=== PATIENT | female | born 1995 | race Hispanic/Latino ===

== ENCOUNTER 2018-03-17 01:53 | Emergency (ER) | payer OTHER ==
--- NOTE | 2018-03-17 02:34 | EDPHYS ---
Physician Documentation [facility] Name: Chapin Pelayo Age: 22 yrs Sex: Female : 1995 Arrival Date: 03/17/2018 Time: 01:57 Bed 15 Private MD: Sonny Ugarte W ED Physician Waldemar Stephens HPI: 03/17 02:29 This 22 yrs old Female presents to ER via Ambulatory with complaints of Finger jr8 Injury. 02:29 The patient or guardian reports a laceration, clean, 1 cm(s), simple. Onset: The jr8 symptoms/episode began/occurred acutely, today. Modifying factors: The symptoms are alleviated by nothing, the symptoms are aggravated by nothing. Associated signs and symptoms: The patient has no apparent associated signs or symptoms. Severity of symptoms: At their worst the symptoms were mild, in the emergency department the symptoms are unchanged. The patient has not experienced similar symptoms in the past. The patient has not recently seen a physician. cut hand on glass door that was broken by accident. Could not get bleeding to stop. 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 pylori; aa1 - PSHx: 02:04 None; aa1 - Immunization history:: Last tetanus immunization: < 5 years ago. - Social history:: Smoking status: Patient/guardian denies using tobacco. - Ebola Screening: : No symptoms or risks identified at this time. ROS: 02:29 Eyes: Negative for injury, pain, redness, and discharge, ENT: Negative for injury, jr8 pain, and discharge, Neck: Negative for injury, pain, and swelling, Cardiovascular: Negative for chest pain, palpitations, and edema, Respiratory: Negative for shortness of breath, cough, wheezing, and pleuritic chest pain, Abdomen/GI: Negative for abdominal pain, nausea, vomiting, diarrhea, and constipation, Back: Negative for injury and pain, MS/Extremity: Negative for injury and deformity, Neuro: Negative for headache, weakness, numbness, tingling, and seizure. 02:29 Skin: Positive for laceration(s). Exam: 02:29 Constitutional: This is a well developed, well nourished patient who is awake, alert, jr8 and in no acute distress. Cardiovascular: Regular rate and rhythm with a normal S1 and S2. No gallops, murmurs, or rubs. Normal PMI, no JVD. No pulse deficits. Respiratory: Lungs have equal breath sounds bilaterally, clear to auscultation and percussion. No rales, rhonchi or wheezes noted. No increased work of breathing, no retractions or nasal flaring. MS/ Extremity: Pulses equal, no cyanosis. Neurovascular intact. Full, normal range of motion. Neuro: Awake and alert, GCS 15, oriented to person, place, time, and situation. Cranial nerves II-XII grossly intact. Motor strength 5/5 in all extremities. Sensory grossly intact. Cerebellar exam normal. Normal gait. 02:29 Skin: small 1 cm laceration to 3rd digit right hand at the PIP level. Mild amount of bleeding. No glass noted. Superficial. Another small 1 cm laceration noted to 4th digit PIP level dorsal aspect with minimal bleeding. No glass noted. Vital Signs: 02:04 BP 134 / 94; Pulse 95; Resp 16; Temp 98.2; Pulse Ox 97% ; Weight 72.57 kg; Height 5 ft. aa1 3 in. (160.02 cm); Pain 3/10; 02:04 Body Mass Index 28.34 (72.57 kg, 160.02 cm) aa1 MDM: 02:29 Data reviewed: vital signs, nurses notes, and as a result, I will discharge patient. jr8 Data interpreted: Pulse oximetry: on room air is 97 %. Interpretation: normal. Counseling: I had a detailed discussion with the patient and/or guardian regarding: the historical points, exam findings, and any diagnostic results supporting the discharge/admit diagnosis, the need for outpatient follow up, a family practitioner, to return to the emergency department if symptoms worsen or persist or if there are any questions or concerns that arise at home. ED course: Wounds were not deep enough to suture. Dermabond would not work in flexural areas. Suggested pressure dressing and secondary healing at this point which patient is fine with. Tetanus up to date. Will d/c home with wound management instructions and to watch for infection. Wounds were thoroughly cleaned and dressed by me prior to leaving . 02:34 Patient medically screened. jr8 Administered Medications: No medications were administered Disposition: 02:40 Co-signature as Attending Physician, Waldemar Stephens MD. rn Disposition: 03/17/18 02:34 Discharged to Home. Impression: Laceration without foreign body of finger without damage to nail. - Condition is Stable. - Discharge Instructions: Laceration Care, Adult. - Medication Reconciliation Form, Thank You Letter, Antibiotic Education, Prescription Opioid Use form. - Follow up: Sonny Ugarte MD; When: As needed; Reason: Wound Recheck, Recheck today's complaints, Continuance of care, Re-evaluation by your physician. - Problem is new. - Symptoms have improved. Signatures: Tiffani Armstrong RN RN aa1 Waldemar Stephens MD MD rn Roszak, Josh, PA PA jr8 Corrections: (The following items were deleted from the chart) 02:39 02:34 03/17/2018 02:34 Discharged to Home. Impression: Laceration without foreign body aa1 of finger without damage to nail. Condition is Stable. Forms are Medication Reconciliation Form, Thank You Letter, Antibiotic Education, Prescription Opioid Use. Follow up: Sonny Ugarte; When: As needed; Reason: Wound Recheck, Recheck today's complaints, Continuance of care, Re-evaluation by your physician. Problem is new. Symptoms have improved. jr8
--- NOTE | 2018-03-17 02:34 | ER ---
Nurse's Notes [facility] Name: Chapin Pelayo Age: 22 yrs Sex: Female : 1995 Arrival Date: 03/17/2018 Time: 01:57 Bed 15 Private MD: Sonny Ugarte W Diagnosis: Laceration without foreign body of finger without damage to nail Presentation: 03/17 02:02 Presenting complaint: Patient states: she cut her R middle \T\ ring finger on some broken aa1 glass on her back door. Transition of care: patient was not received from another setting of care. Onset of symptoms was March 17, 2018. Risk Assessment: Do you want to hurt yourself or someone else? Patient reports no desire to harm self or others. Initial Sepsis Screen: Does the patient meet any 2 criteria? No. Patient's initial sepsis screen is negative. Does the patient have a suspected source of infection? No. Patient's initial sepsis screen is negative. Care prior to arrival: None. 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 pylori; aa1 - PSHx: 02:04 None; aa1 - Immunization history:: Last tetanus immunization: < 5 years ago. - Social history:: Smoking status: Patient/guardian denies using tobacco. - Ebola Screening: : No symptoms or risks identified at this time. Screenin:18 Abuse screen: Denies threats or abuse. Denies injuries from another. Nutritional aa1 screening: No deficits noted. Tuberculosis screening: No symptoms or risk factors identified. Fall Risk None identified. Assessment: 02:18 General: Appears in no apparent distress. comfortable, Behavior is calm, cooperative, aa1 appropriate for age. Pain: Complains of pain in right middle finger and right ring finger. 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 Full function. Respiratory: Airway is patent Respiratory effort is even, unlabored, Respiratory pattern is regular, symmetrical. GI: No signs and/or symptoms were reported involving the gastrointestinal system. : No signs and/or symptoms were reported regarding the genitourinary system. EENT: No signs and/or symptoms were reported regarding the EENT system. Derm: Skin is intact, is healthy with good turgor, Skin is pink, warm \T\ dry. Musculoskeletal: Circulation, motion, and sensation intact. Capillary refill < 3 seconds, Range of motion: intact in all extremities. Injury Description: Laceration sustained to dorsal aspect of middle phalanx of right middle finger and dorsal aspect of middle phalanx of right ring finger is superficial, 0.5 to 2.5 cm long. 02:38 Reassessment: Patient appears in no apparent distress at this time. Patient is alert, aa1 oriented x 3, equal unlabored respirations, skin warm/dry/pink. Discussed d/c \T\ f/u instructions with pt \T\ mother; denies questions or concerns at this time. Vital Signs: 02:04 BP 134 / 94; Pulse 95; Resp 16; Temp 98.2; Pulse Ox 97% ; Weight 72.57 kg; Height 5 ft. aa1 3 in. (160.02 cm); Pain 3/10; 02:04 Body Mass Index 28.34 (72.57 kg, 160.02 cm) aa1 ED Course: 01:57 Patient arrived in ED. es 01:57 Sonny Ugarte MD is Private Physician. es 01:58 Tiffani Armstrong, RN is Primary Nurse. aa1 02:03 Triage completed. aa1 02:04 Arm band placed on left wrist. aa1 02:18 Patient has correct armband on for positive identification. Bed in low position. Call aa1 light in reach. Pulse ox on. NIBP on. 02:18 No provider procedures requiring assistance completed. Patient did not have IV access aa1 during this emergency room visit. Dressings: Zoë x 1 right ring finger and right middle finger 4X4s X 1; right ring finger and right middle finger. Wound care: to laceration located on right ring finger and right middle finger was cleaned with Hibiclens, irrigated with normal saline, dressed with 4X4s, cling, Patient tolerated well. 02:22 Regan Pina PA is PHCP. aa1 02:22 Waldemar Stephens MD is Attending Physician. aa1 02:33 Sonny Ugarte MD is Referral Physician. jr8 Administered Medications: No medications were administered Outcome: 02:34 Discharge ordered by . jr8 02:38 Discharged to home ambulatory, with family. aa1 02:38 Condition: good 02:38 Discharge instructions given to patient, family, Instructed on discharge instructions, follow up and referral plans. wound care, Demonstrated understanding of instructions, follow-up care, wound care. 02:39 Patient left the ED. aa1 Signatures: Tiffani Armstrong RN RN aa1 Sumi Emery Josh, LUCIA PA jr8
[2018-03-17 02:51] VITALS: BP 134/94; TEMP 98.2; O2SAT 97
== END 2018-03-17 02:39 | disposition home or self-care (01) ==
LOC: ER 01:53
DX: S61.212A Laceration without foreign body of right middle finger without damage to nail, initial encounter (principal); S61.214A Laceration without foreign body of right ring finger without damage to nail, initial encounter; W25.XXXA Contact with sharp glass, initial encounter
CPT/HCPCS: 99283

== ENCOUNTER 2018-11-05 15:34 | Emergency (ER) | payer OTHER ==
[2018-11-05] MEDS ORDERED: KETOROLAC 30 MG/ML INJ ONE (15:54)
[2018-11-05] MEDS ORDERED: DIPHENHYDRAMINE 50 MG/ML VIAL ONE (15:54)
[2018-11-05] MEDS ORDERED: METOCLOPRAMIDE 10 MG/2mL INJ ONE (15:54)
[2018-11-05] MEDS ORDERED: NA CHLORIDE 0.9% 1,000 ML ONE (15:54)
--- NOTE | 2018-11-05 16:43 | EDPHYS ---
Physician Documentation [facility] Name: Chapin Pelayo Age: 22 yrs Sex: Female : 1995 Arrival Date: 11/05/2018 Time: 15:36 Bed 15 Private MD: ED Physician Ronak Meade HPI: 11/05 17:00 This 22 yrs old Female presents to ER via Ambulatory with complaints of kb Headache, Blurred Vision. 17:00 The patient complains of pain to the right side of head. The patient describes the kb headache as constant. Onset: The symptoms/episode began/occurred 3 day(s) ago. Associated signs and symptoms: Pertinent positives: Photophobia. Severity of symptoms: At its worst the pain was moderate, in the emergency department the pain is unchanged. Headache History: The patient has had previous headaches and this one is similar to previous episodes. The symptoms are alleviated by nothing. the symptoms are aggravated by nothing. The patient has experienced similar episodes in the past, today's symptoms are similar. The patient has not recently seen a physician. 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 pylori; Migraines; la1 - Immunization history:: Adult Immunizations up to date. - Social history:: Smoking status: Patient/guardian denies using tobacco. - Ebola Screening: : No symptoms or risks identified at this time. ROS: 16:57 Constitutional: Negative for fever, chills, and weight loss, ENT: Negative for injury, kb pain, and discharge, Neck: Negative for injury, pain, and swelling, Cardiovascular: Negative for chest pain, palpitations, and edema, Respiratory: Negative for shortness of breath, cough, wheezing, and pleuritic chest pain, Abdomen/GI: Negative for abdominal pain, nausea, vomiting, diarrhea, and constipation, Back: Negative for injury and pain, MS/Extremity: Negative for injury and deformity, Skin: Negative for injury, rash, and discoloration. 16:57 Neuro: Positive for headache. Exam: 17:00 Constitutional: This is a well developed, well nourished patient who is awake, alert, kb and in no acute distress. Head/Face: Normocephalic, atraumatic. Eyes: Pupils equal round and reactive to light, extra-ocular motions intact. Lids and lashes normal. Conjunctiva and sclera are non-icteric and not injected. Cornea within normal limits. Periorbital areas with no swelling, redness, or edema. ENT: Nares patent. No nasal discharge, no septal abnormalities noted. Tympanic membranes are normal and external auditory canals are clear. Oropharynx with no redness, swelling, or masses, exudates, or evidence of obstruction, uvula midline. Mucous membranes moist. Neck: Trachea midline, no thyromegaly or masses palpated, and no cervical lymphadenopathy. Supple, full range of motion without nuchal rigidity, or vertebral point tenderness. No Meningismus. Chest/axilla: Normal chest wall appearance and motion. Nontender with no deformity. No lesions are appreciated. Cardiovascular: Regular rate and rhythm with a normal S1 and S2. No gallops, murmurs, or rubs. Normal PMI, no JVD. No pulse deficits. Respiratory: Lungs have equal breath sounds bilaterally, clear to auscultation and percussion. No rales, rhonchi or wheezes noted. No increased work of breathing, no retractions or nasal flaring. Abdomen/GI: Soft, non-tender, with normal bowel sounds. No distension or tympany. No guarding or rebound. No evidence of tenderness throughout. Back: No spinal tenderness. No costovertebral tenderness. Full range of motion. Skin: Warm, dry with normal turgor. Normal color with no rashes, no lesions, and no evidence of cellulitis. MS/ Extremity: Pulses equal, no cyanosis. Neurovascular intact. Full, normal range of motion. Neuro: Awake and alert, GCS 15, oriented to person, place, time, and situation. Cranial nerves II-XII grossly intact. Motor strength 5/5 in all extremities. Sensory grossly intact. Cerebellar exam normal. Normal gait. Vital Signs: 15:42 BP 131 / 95; Pulse 72; Resp 16; Temp 97.8; Pulse Ox 100% on R/A; Weight 70.31 kg; la1 Height 5 ft. 3 in. (160.02 cm); 16:42 BP 108 / 71; Pulse 61; Resp 16; Pulse Ox 100% ; Pain 4/10; rb1 15:42 Body Mass Index 27.46 (70.31 kg, 160.02 cm) la1 [place] Coma Score: 16:40 Eye Response: spontaneous(4). Verbal Response: oriented(5). Motor Response: obeys kb commands(6). Total: 15. MDM: 15:44 Patient medically screened. kb 16:40 Data reviewed: vital signs, nurses notes. Data interpreted: Pulse oximetry: on room air kb is 100 %. Interpretation: normal. Counseling: I had a detailed discussion with the patient and/or guardian regarding: the historical points, exam findings, and any diagnostic results supporting the discharge/admit diagnosis, the need for outpatient follow up, a family practitioner, a neurologist, to return to the emergency department if symptoms worsen or persist or if there are any questions or concerns that arise at home. 11/05 15:50 Order name: IV Start; Complete Time: 16:16 kb Administered Medications: 16:00 Drug: TORadol - Ketorolac 15 mg Route: IVP; Site: right antecubital; rb1 16:15 Follow up: Response: No adverse reaction rb1 16:00 Drug: Reglan 10 mg Route: IVP; Site: right antecubital; rb1 16:15 Follow up: Response: No adverse reaction rb1 16:00 Drug: Benadryl 12.5 mg Route: IVP; Site: right antecubital; rb1 16:15 Follow up: Response: No adverse reaction rb1 16:00 Drug: NS 0.9% 1000 ml Route: IV; Rate: 1000 ml; Site: right antecubital; rb1 17:03 Follow up: IV Status: Completed infusion rb1 Disposition: 11/06 07:13 Co-signature as Attending Physician, Ronak Meade MD. hi2 Disposition: 11/05/18 16:42 Discharged to Home. Impression: Migraine. - Condition is Stable. - Discharge Instructions: Migraine Headache, [id number]. - Medication Reconciliation Form, Thank You Letter, Antibiotic Education, Prescription Opioid Use, Work release form form. - Follow up: Private Physician; When: 2 - 3 days; Reason: Recheck today's complaints, Continuance of care, Re-evaluation by your physician. Follow up: Emergency Department; When: As needed; Reason: Worsening of condition. Signatures: Yvonne Pretty, ROBERTH-C ROBERTH-Filemon Oliver RN RN la1 Shikha Carreon, RN RN rb1 Ronak Meade MD MD ma2 Corrections: (The following items were deleted from the chart) 11/05 17:08 16:42 11/05/2018 16:42 Discharged to Home. Impression: Migraine. Condition is Stable. rb1 Forms are Medication Reconciliation Form, Thank You Letter, Antibiotic Education, Prescription Opioid Use. Follow up: Private Physician; When: 2 - 3 days; Reason: Recheck today's complaints, Continuance of care, Re-evaluation by your physician. Follow up: Emergency Department; When: As needed; Reason: Worsening of condition. kb
--- NOTE | 2018-11-05 16:43 | ER ---
Nurse's Notes [facility] Name: Chapin Pelayo Age: 22 yrs Sex: Female : 1995 Arrival Date: 11/05/2018 Time: 15:36 Bed 15 Private MD: Diagnosis: Migraine Presentation: 11/05 15:41 Presenting complaint: Patient states: I have had a migraine but it has been going on la1 for three days. Transition of care: patient was not received from another setting of care. Onset of symptoms was November 05, 2018. Risk Assessment: Do you want to hurt yourself or someone else? Patient reports no desire to harm self or others. Initial Sepsis Screen: Does the patient meet any 2 criteria? No. Patient's initial sepsis screen is negative. Does the patient have a suspected source of infection? No. Patient's initial sepsis screen is negative. Care prior to arrival: None. 15:41 Method Of Arrival: Ambulatory la1 15:41 Acuity: MAXIMO 3 la1 Triage Assessment: 15:45 Headache History: Other pt. reports that this headache is lasting longer than they rb1 normally do. 15:45 Pain: Also complains of nausea, photophobia. 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 pylori; Migraines; la1 - Immunization history:: Adult Immunizations up to date. - Social history:: Smoking status: Patient/guardian denies using tobacco. - Ebola Screening: : No symptoms or risks identified at this time. Screenin:45 Abuse screen: Denies threats or abuse. Nutritional screening: No deficits noted. rb1 Tuberculosis screening: No symptoms or risk factors identified. Fall Risk None identified. Assessment: 15:45 General: Appears uncomfortable, Behavior is calm, cooperative, Denies fever. Pain: rb1 Complains of pain in headache Pain currently is 10 out of 10 on a pain scale. Pain began x 3 days. Neuro: Level of Consciousness is awake, alert, obeys commands, Oriented to person, place, time, situation. Cardiovascular: Capillary refill < 3 seconds is brisk in bilateral fingers. Respiratory: Airway is patent Respiratory effort is even, unlabored, Respiratory pattern is regular, symmetrical. GI: Reports nausea, vomiting, x 2 days. : No signs and/or symptoms were reported regarding the genitourinary system. Derm: Skin is pink, warm \T\ dry. 15:45 Neuro: Reports photophobia. Neuro: Reports headache in right occipital area. rb1 Musculoskeletal: Range of motion: intact in all extremities, Reports muscle spasms in her upper back. 16:38 Reassessment: Patient appears in no apparent distress at this time. Patient and/or rb1 family updated on plan of care and expected duration. Pain level reassessed. Patient is alert, oriented x 3, equal unlabored respirations, skin warm/dry/pink. Discharge pending due to IV fluids infusing Patient states feeling better. Patient states symptoms have improved. Vital Signs: 15:42 BP 131 / 95; Pulse 72; Resp 16; Temp 97.8; Pulse Ox 100% on R/A; Weight 70.31 kg; la1 Height 5 ft. 3 in. (160.02 cm); 16:42 BP 108 / 71; Pulse 61; Resp 16; Pulse Ox 100% ; Pain 4/10; rb1 15:42 Body Mass Index 27.46 (70.31 kg, 160.02 cm) la1 [place] Coma Score: 16:40 Eye Response: spontaneous(4). Verbal Response: oriented(5). Motor Response: obeys kb commands(6). Total: 15. ED Course: 15:36 Patient arrived in ED. as 15:42 Triage completed. la1 15:43 Arm band placed on right wrist. la1 15:44 Yvonne Pretty FNP-C [facility]. kb 15:44 Ronak Meade MD is Attending Physician. kb 15:45 Patient has correct armband on for positive identification. Bed in low position. Call rb1 light in reach. Side rails up X 1. Pulse ox on. NIBP on. Warm blanket given. 15:50 Shikha Carreon, JESKIA is Primary Nurse. rb1 16:00 Inserted saline lock: 22 gauge in right antecubital area, using aseptic technique. rb1 17:07 No provider procedures requiring assistance completed. IV discontinued, intact, rb1 bleeding controlled, No redness/swelling at site. Pressure dressing applied. Administered Medications: 16:00 Drug: TORadol - Ketorolac 15 mg Route: IVP; Site: right antecubital; rb1 16:15 Follow up: Response: No adverse reaction rb1 16:00 Drug: Reglan 10 mg Route: IVP; Site: right antecubital; rb1 16:15 Follow up: Response: No adverse reaction rb1 16:00 Drug: Benadryl 12.5 mg Route: IVP; Site: right antecubital; rb1 16:15 Follow up: Response: No adverse reaction rb1 16:00 Drug: NS 0.9% 1000 ml Route: IV; Rate: 1000 ml; Site: right antecubital; rb1 17:03 Follow up: IV Status: Completed infusion rb1 Outcome: 16:42 Discharge ordered by . kb 17:07 Discharged to home ambulatory, with family. rb1 17:07 Condition: stable 17:07 Discharge instructions given to patient, Instructed on discharge instructions, follow up and referral plans. Demonstrated understanding of instructions, follow-up care, Prescriptions given X none 17:08 Patient left the ED. rb1 Signatures: Yvonne Pretty, ROBERTH-C LEAD RUBY ON RAILS DEVELOPER-Rachael San Lee RN RN la1 Shikha Carreon, JESIKA RN rb1 Corrections: (The following items were deleted from the chart) 16:54 16:45 Reassessment: Discharge pending due to IV fluids infusing rb1 rb1
[2018-11-05 17:15] VITALS: TEMP 97.8; O2SAT 100
[2018-11-05 17:17] VITALS: BP 108/71
== END 2018-11-05 17:08 | disposition home or self-care (01) ==
LOC: ER 15:34
DX: G43.909 Migraine, unspecified, not intractable, without status migrainosus (principal)
CPT/HCPCS: 96361; 96375; 96374; 99284; J2765; J7030

== ENCOUNTER 2019-01-25 06:38 | Day surgery (SDC) | payer OTHER ==
[2019-01-20 15:55] LABS: Absolute Lymphocytes (CBC) 2.3 K/uL (0.7-4.9); Basophils % 0.8 % (0-1.3); Hematocrit 40.4 % (36.0-45.0); MPV 10.1 fL (7.6-11.3); RBC Red Blood Cell Count 4.39 M/uL (3.86-4.86)
[2019-01-25 06:52] LABS: Specific Gravity 1.025 (1.005-1.030)
[2019-01-25] MEDS ORDERED: SCOPOLAMINE HYDROBROMIDE PATCH TD ONE ×2 (06:56→07:10)
[2019-01-25] MEDS ORDERED: Ringers Lactate 1,000 ML IV ONE ×2 (06:56→09:12)
[2019-01-25] MEDS ORDERED: NA CHLORIDE 0.9% 1,000 ML ONE (07:03)
[2019-01-25] MEDS ORDERED: FENTANYL CITR 100 MCG/2 ML ONE ×3 (07:15→09:07)
[2019-01-25] MEDS ORDERED: LIDOCAINE 1% MPF 5 ML VIAL ONE (07:15)
[2019-01-25] MEDS ORDERED: MIDAZOLAM HCL 2 MG/2 ML INJ ONE (07:15)
[2019-01-25] MEDS ORDERED: propofoL 200 MG/20 ML VIAL IV ONE (07:15)
[2019-01-25] MEDS ORDERED: ROCURONIUM 50 MG/5 ML VIAL IV ONE (07:15)
[2019-01-25] MEDS: BUPIVACAINE 0.25% PF 30 ML VIAL ONE ×2 (07:30→08:17)
[2019-01-25 07:38] LABS: Urine Appearance CLEAR; Urine Bilirubin NEGATIVE (NEG); Urine Blood NEGATIVE (NEG); Urine Color YELLOW; Urine Glucose NEGATIVE (NEG); Urine Protein NEGATIVE (NEG); Urine Specific Gravity 1.025 (1.005-1.030); Urine Urobilinogen 0.2 mg/dL (0.2-1.0); Urine pH 5.5 (5.0-7.0)
[2019-01-25 07:56] LABS: Urine Microscopic Reflex NO UMIC
[2019-01-25] MEDS ORDERED: CEFAZOLIN SODIUM 1 GM/VIAL ONE (08:48)
[2019-01-25] MEDS ORDERED: NS 0.9% VIAL 10 ML ONE (08:48)
[2019-01-25] MEDS ORDERED: KETOROLAC 30 MG/ML INJ ONE (09:09)
[2019-01-25] MEDS ORDERED: NEOSTIGMINE 1 MG/ML -10 ML VIAL ONE (09:10)
[2019-01-25] MEDS ORDERED: ONDANSETRON 4 MG/2 ML VIAL ONE ×2 (09:10→12:10)
[2019-01-25] MEDS ORDERED: GLYCOPYRROLATE 0.2 MG/ML SYR ONE (09:10)
[2019-01-25] MEDS: HYDROMORPHONE HCL 1 MG/ML INJ ONE ×4 (09:33→09:52)
[2019-01-25] MEDS ORDERED: PROMETHAZINE 25 MG/ML VIAL ONE (09:59)
[2019-01-25] MEDS ORDERED: HYDROCODONE/APAP 5/325 MG TAB ONE (11:24)
[2019-01-25 13:31] VITALS: BP 123/71; TEMP 97.2; O2SAT 100
--- NOTE | 2019-01-26 20:05 | OP ---
Date of Procedure: 01/25/2019 Surgeon: Vika Jo MD Software Architect: Bella Trejo. Preoperative Diagnoses: Pelvic pain, dysmenorrhea, also history of irregular periods in the past. Postoperative Diagnoses: Pelvic pain, dysmenorrhea, also history of irregular periods in the past, p ossible inflammation and swelling of the appendix. Procedures Performed: Diagnostic hysteroscopy, laparoscopy, and laparoscopic appendectomy. Anesthesia: General. Specimens: Appendix. Complications: No complications. Drains: No drains. Condition: Stable. Indications: Patient is a 23-year-old with history of irregular periods, now on control, histo ry of dysmenorrhea that is new in onset and then pelvic pain. She has been investigated for sexually transmitted infections and there were none found. On examination, no cervical motion tenderness; ho wever, left uterosacral tenderness and scar appeared to be palpable. No evidence of endometritis or salpingitis on this patient. Despite the bleeding being controlled with her oral contraceptives and her dysmenorrhea improving for some amount of time with recurrence again and then pelvic pain and lef t lower quadrant pain. Question of endometriosis is need to be ruled out. She has been on the not o ral contraceptives, but on the NuvaRing combination contraceptive. Options of continuing to observe or use of a GnRH antagonist for impaired treatment of endometriosis versus diagnostic procedure to di agnose endometriosis and excised if present and then after confirmation of the diagnosis, proceed wit h treatment medically with the combination contraceptive to continue that suffices or to move on to u sing a GnRH antagonist if needed. So, patient understood all the benefits and risks of all the optio ns and alternatives and she chose to have the procedure for diagnostic purposes as well as therapeuti c purposes. She was consented for diagnostic hysteroscopy, diagnostic laparoscopy, possible endometr iosis excision and treatment of any other pathology noted. Description Of Procedure: After informed consent was verified, she was brought to the OR and placed in a supine fashion on the operating table. General anesthesia was given and placed in a dorsal lith otomy position. Arms were tucked by the side. Time-out done. Abdomen, vulva, vagina, and perineum were prepped and draped in a sterile fashion. Galaviz was placed to drain the bladder. Speculum was p laced to expose the cervix. Anterior lip was grasped with 2 Allis clamps and diagnostic SlimLine hys teroscope was used to enter the cervical canal and traversed under direct vision into the uterine cav ity. Cavity unremarkable. No cavity distortions or anatomical abnormalities. No intracavitary lesi ons were seen. Endometrium appeared to be unremarkable. Both tubal ostia were visualized. Scope re moved. Diagnostic VCare introduced for uterine manipulation and this area was draped. A 1 cm infraumbilical after going to the abdominal side, a 1 cm infraumbilical incision was made. Fa scia incised and tagged with 0 Vicryl sutures. Peritoneum entered sharply with scissors and then S r etractors placed. Jhon introduced, site of entry was checked, unremarkable. Upper abdominal surfa julisa were checked as well as the liver and gallbladder completely unremarkable. The peritoneum under the diaphragm in all other surface of the upper abdomen unremarkable. Omentum unremarkable as well. Patient was placed in Trendelenburg position. A 5 mm suprapubic port was placed after injecting loc al Marcaine at both and umbilical site and here. A 5 port was introduced without any problems, then survey of the pelvic cavity was performed to evaluate for endometriosis. Thorough inspection of the bilateral tubes and ovaries, the broad ligament anteriorly, anterior cul-de-sac, lateral anterior bro ad ligaments and posterior broad ligament, lateral sidewall all the way from the pelvic brim to the u reteric tunnel and posterior cul-de-sac were all done and uterosacral ligaments were also inspected. There was a slight scarring noted in the left posterior cul-de-sac right behind the left uterosacral , but no evidence of endometriosis was noted on close inspection. Similarly, the fold of peritoneum appeared to be pulled up towards the ureter, but there was no evidence on close inspection for endome triosis. After thorough inspection and absence of any endometriotic lesions that were obvious to me, then the appendix was identified and inspected. The tip of the appendix and the distal 2/3 were swollen and t here was increased vascularity possibly and thickening of the mesoappendix. The possibility of infla mmation or obstruction of the lumen and the absence of other pathology, this was something that could be removed and looked for if this was any cause for inflammation in the past or currently causing th e pain. So, once this was decided, left 5 port was placed after injecting Marcaine at the fascia and skin. Then, lifted up the mesoappendix, opened up the peritoneum between the base of the appendix a nd the cecum with the help of Jazmin and once this was made wide enough, then a blue load of the sta pler was taken for the bowel. The side of the appendix and this was placed, the stapler was placed a nd then the appendix was detached. Then, a vascular load was taken on the stapler and placed through the mesoappendix after checking to make sure that was positioned well. After the vascular load was placed, there was an area of the mesoappendix that was bleeding and this was picked up and two 5 mm s taples were placed here and there was excellent hemostasis after this. Thorough irrigation and sucti on were performed. The mesoappendix and there was a small peritoneal mass that probably from one of the epiploicae detaching themselves of calcified. Both of this was collected as well as the appendix into an EndoCatch bag and then removed through the umbilical port. Thorough irrigation and suction were performed. There was excellent hemostasis. All the trocars were removed under direct vision an d Marcaine injected. Jhon removed. Port was closed after and then the specimen bag was removed as well without any spillage. A 1 g of Ancef was given when the decision for appendectomy was made, so this was before the appendix was cut. Instrument, needle, and sponge counts were correct at the end of the case. The fascia at the umbilic us closed with the help of the 0 Vicryl tag sutures tied together and 4-0 Monocryl interrupted suture s for skin. Galaviz and VCare were removed. All the incisions were closed with Steri-Strips. She was recovered from anesthesia in the OR and taken to PACU in stable condition. EBL minimal. She will follow up with me in 1 week. PIEDAD/THONG Voice ID: [id number] Report ID: [id number]
--- NOTE | 2019-02-12 03:25 | OP ---
Date of Procedure: 01/25/2019 Surgeon: Vika Jo MD Sneller Hand: Bella Trejo. Preoperative Diagnoses: Pelvic pain, dysmenorrhea. Postoperative Diagnoses: Pelvic pain, dysmenorrhea, and likely inflamed appendix. Procedures Performed: Hysteroscopy, laparoscopy, appendectomy. Anesthesia: General endotracheal. Specimens: Appendix. Estimated Blood Loss: Minimal. Complications: No complications. Drains: No drains. Findings: Enlarged vascular appendix. No evidence of endometriosis on close examination. Hysterosc opy without uterine anomalies. Description Of Procedure: After informed consent was obtained, patient was taken back to the OR, [facility] in a supine fashion on the operating table. General anesthesia was given, placed in a dorsal lit hotomy position. Since only, possible endometriosis excision was planned, no antibiotics were given at the onset of the procedure. After abdomen, vulva, vagina, and perineum were prepped and draped in a sterile fashion. Galaviz was p laced to drain the bladder. Speculum was placed to expose the cervix. Anterior lip grasped with 2 A llis clamps. Hysteroscopy was performed with a SlimLine hysteroscope. No uterine anomalies were fou nd, cavity singular. Both tubal ostia well visualized. No intracavitary lesions. The endometrium a ppeared to be unremarkable. Scope was pulled out. Diagnostic VCare introduced and this area was get ped. 1 cm infraumbilical incision made with a scalpel using the open laparoscopy technique. Fascia was in cised, tagged with 0 Vicryl sutures. Peritoneum entered bluntly and S retractors placed and Jhon i ntroduced. Site of entry was checked and was unremarkable. Upper abdominal surfaces were all visual ized. No evidence of any endometriosis. Patient was placed in Trendelenburg position. A 5 mm supra pubic port was placed and the left lower quadrant port was placed as well after injecting Marcaine in the fascia and the skin. Then, on close inspection of the tubes, ovaries, anterior peritoneum, cul- de-sac, lateral broad ligaments, and posterior broad ligaments, lateral cornell, posterior cul-de-sac, no evidence of any endometriosis was seen as around the uterosacral ligament as well. On visualizati on of the appendix, there was enlargement of the appendix in the distal 4/5th and it was very vascula r. No evidence of any adhesions in the pelvic cavity. No other etiology that could explain her pain , so plan was to remove her appendix. The mesoappendix was dissected. The base of the appendix very flush with the cecum, a good 1 cm window was made. Then, FRANCES laparoscopic stapler was taken and fir ed across the base of the appendix. Once this was stapled and cut, then, a vascular node was taken a nd this was placed on the mesoappendix after it was nicely skeletonized. Then, a vascular load was u sed to staple and cut and once this was done, there was minimal bleeding at the edge of the mesoappen yung and therefore, 5 mm clip x2 were placed. There was excellent hemostasis. Thorough irrigation an d suction performed. The appendix was placed in a bag before the appendix was removed. Once the dec ision was made to perform an appendectomy, 2 g of Ancef were given to this patient. This was an IV p ush, so this was done before the appendix was removed. Once the appendix was placed in a bag and irr igation was done, there was good hemostasis. Then, all the trocars were removed under direct vision. The bag was removed through the umbilical incision with trocar. The trocar was removed. Gas was d esufflated. Fascia closed with 0 Vicryl tag sutures, tied to each other, then 4-0 interrupted in all 3 incisions. Galaviz was removed. VCare was removed. Instrument, needle, and sponge counts were cor rect. EBL minimal. Appendix sent for permanent pathology. She was recovered from anesthesia in the OR and taken to PACU in stable condition. PIEDAD/THONG Voice ID: [id number] Report ID: [id number]
== END 2019-01-25 12:45 | disposition home or self-care (01) ==
LOC: OR 06:38
PROVIDERS: ATTEND Obstetrics & Gynecology
PROC: 0DTJ4ZZ Resection of Appendix, Percutaneous Endoscopic Approach (ICD-10-PCS; 2019-01-25)
PROC: 0UJD8ZZ Inspection of Uterus and Cervix, Via Natural or Artificial Opening Endoscopic (ICD-10-PCS; principal; 2019-01-25 07:30)
DX: N94.6 Dysmenorrhea, unspecified (principal); K36 Other appendicitis; R10.2 Pelvic and perineal pain; F32.9 Major depressive disorder, single episode, unspecified
CPT/HCPCS: 85025; 36415; 86900; 86850; 81025; 86901; 88304; 81003; 58555; 44970; J2704; J2710; J2550; J2250; J3010 ×3; J1170 ×2; J7120 ×2; J7030; J2405 ×2; J0690

== ENCOUNTER 2019-04-06 14:30 | Emergency (ER) | payer OTHER ==
[2019-04-06] MEDS ORDERED: METOCLOPRAMIDE 10 MG/2mL INJ ONE (15:26)
[2019-04-06] MEDS ORDERED: NA CHLORIDE 0.9% 1,000 ML ONE (15:27)
[2019-04-06] MEDS ORDERED: DIPHENHYDRAMINE 50 MG/ML VIAL ONE (15:27)
[2019-04-06 15:32] LABS: Absolute Lymphocytes (CBC) 2.2 K/uL (0.7-4.9); Basophils % 0.3 % (0-1.3); Hematocrit 39.2 % (36.0-45.0); Lymphocytes % 22.1 % (15.3-44.8); MPV 9.6 fL (7.6-11.3); RBC Red Blood Cell Count 4.41 M/uL (3.86-4.86)
[2019-04-06 15:43] LABS: BUN Blood Urea Nitrogen 9 mg/dL (7-18); Bicarbonate 21 mmol/L (21-32); Glucose Level 83 mg/dL (74-106); Potassium 3.4 mmol/L (3.5-5.1); Sodium Level 139 mmol/L (136-145)
--- NOTE | 2019-04-06 16:31 | ER ---
Nurse's Notes [facility] Name: Chapin Pelayo Age: 23 yrs Sex: Female : 1995 Arrival Date: 04/06/2019 Time: 14:33 Bed 19 Private MD: Fady Gaines Diagnosis: Migraine without aura, intractable Presentation: 04/06 14:40 Presenting complaint: Patient states: i am having a migraine since 930 this morning, i tw2 took my migraine medicine for it and i could feel the pain even still while i was asleep, i kept throwing up, i feel loss of sensation in my hands and my feet, and it feels really hard to breathe and it hurts really bad on the left side of my head. Transition of care: patient was not received from another setting of care. Onset of symptoms was April 06, 2019. Risk Assessment: Do you want to hurt yourself or someone else? Patient reports no desire to harm self or others. Initial Sepsis Screen: Does the patient meet any 2 criteria? No. Patient's initial sepsis screen is negative. Does the patient have a suspected source of infection? No. Patient's initial sepsis screen is negative. Care prior to arrival: None. 14:40 Method Of Arrival: Ambulatory tw2 14:40 Acuity: MAXIMO 3 tw2 Triage Assessment: 14:41 General: Appears in no apparent distress. Behavior is calm, cooperative, appropriate tw2 for age. Pain: Complains of pain in forehead, left eye and left orthodoxy. Neuro: Reports headache. 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 pylori; Degenerative disc disease; Hypothyroidism; tw2 - Immunization history:: Adult Immunizations. - Coronavirus screen:: The patient has NOT traveled to [place] in the past 14 days. - Social history:: Smoking status: . - Ebola Screening: : Patient denies travel to an Ebola-affected area in the 21 days before illness onset. Screenin:55 Abuse screen: Denies threats or abuse. Denies injuries from another. Nutritional ca1 screening: No deficits noted. Tuberculosis screening: No symptoms or risk factors identified. Fall Risk IV access (20 points). Assessment: 14:55 General: Appears in no apparent distress. comfortable, Behavior is calm, cooperative, ca1 appropriate for age. Pain: Complains of pain in face and left orthodoxy and left eye and forehead Pain currently is 9 out of 10 on a pain scale. Pain began today Also complains of nausea. Neuro: Level of Consciousness is awake, alert, obeys commands, Oriented to person, place, time, situation, Appropriate for age. Cardiovascular: Heart tones S1 S2 present Capillary refill < 3 seconds Patient's skin is warm and dry. Respiratory: Airway is patent Respiratory effort is even, unlabored, Respiratory pattern is regular, symmetrical, Breath sounds are clear bilaterally. GI: Abdomen is flat, non-distended, Bowel sounds present X 4 quads. Abd is soft and non tender X 4 quads. Reports nausea, vomiting. : No deficits noted. No signs and/or symptoms were reported regarding the genitourinary system. EENT: No deficits noted. No signs and/or symptoms were reported regarding the EENT system. Derm: Skin is intact, is healthy with good turgor, Skin is pink, warm \T\ dry. Musculoskeletal: Circulation, motion, and sensation intact. Capillary refill < 3 seconds. 16:01 Reassessment: Patient appears in no apparent distress at this time. Patient and/or ca1 family updated on plan of care and expected duration. Pain level reassessed. Patient is alert, oriented x 3, equal unlabored respirations, skin warm/dry/pink. Vital Signs: 14:42 BP 117 / 78; Pulse 88; Resp 17; Temp 97.6(TE); Pulse Ox 100% on R/A; Weight 70.31 kg tw2 (R); Height 5 ft. 3 in. (160.02 cm); Pain 6/10; 16:01 BP 113 / 76; Pulse 76; Resp 17 S; Pulse Ox 100% on R/A; ca1 14:42 Body Mass Index 27.46 (70.31 kg, 160.02 cm) tw2 ED Course: 14:33 Patient arrived in ED. rg4 14:33 Fady Gaines MD is Private Physician. rg4 14:41 Triage completed. tw2 14:41 Arm band placed on. tw2 14:53 Marie Gavin, JESIKA is Primary Nurse. ca1 14:55 Patient has correct armband on for positive identification. Bed in low position. Call ca1 light in reach. Side rails up X 1. Pulse ox on. NIBP on. Door closed. Noise minimized. Visitors limited. Lights dimmed. Warm blanket given. 15:03 Regan Pina PA is PHCP. jr8 15:03 Adair Regalado MD is Attending Physician. jr8 15:15 No provider procedures requiring assistance completed. Initial lab(s) drawn, by nd, ca1 sent to lab. Inserted saline lock: 20 gauge in left antecubital area, using aseptic technique. Blood collected. 16:28 Fady Gaines MD is Referral Physician. jr8 16:42 IV discontinued, intact, bleeding controlled, No redness/swelling at site. Pressure ca1 dressing applied. Administered Medications: 15:20 Drug: NS 0.9% 1000 ml Route: IV; Rate: 1000 ml; Site: left antecubital; ca1 16:28 Follow up: Response: No adverse reaction; IV Status: Completed infusion ca1 15:22 Drug: Benadryl 25 mg Route: IVP; Site: left antecubital; ca1 16:29 Follow up: Response: No adverse reaction; Nausea is decreased ca1 15:25 Drug: Reglan 10 mg Route: IVP; Site: left antecubital; ca1 16:29 Follow up: Response: No adverse reaction; Pain is decreased ca1 Outcome: 16:28 Discharge ordered by . jr8 16:42 Discharged to home ambulatory, with family. ca1 16:42 Condition: stable 16:42 Discharge instructions given to patient, Instructed on discharge instructions, follow up and referral plans. Demonstrated understanding of instructions, follow-up care. 16:42 Patient left the ED. ca1 Signatures: Regan Pina PA PA jr8 Greer Cerrato RN RN tw2 Saima Ochoa rg4 Marie Gavin RN RN ca1
--- NOTE | 2019-04-06 16:31 | EDPHYS ---
Physician Documentation [facility] Name: Chapin Pelayo Age: 23 yrs Sex: Female : 1995 Arrival Date: 04/06/2019 Time: 14:33 Bed 19 Private MD: Fady Gaines ED Physician Adair Regalado HPI: 04/06 15:59 This 23 yrs old Female presents to ER via Ambulatory with complaints of jr8 Weakness, Breathing Difficulty, Migraine. 15:59 The patient complains of pain to the diffuse. The patient describes the headache as jr8 throbbing. Onset: The symptoms/episode began/occurred acutely, today. Associated signs and symptoms: Pertinent positives: nausea, paresthesias, blurred vision, vomiting, shortness of breath. Severity of symptoms: At its worst the pain was moderate, in the emergency department the pain is unchanged. Headache History: The patient has had previous headaches and this one is similar to previous episodes, and this one is more severe than previous episodes. The symptoms are alleviated by nothing. the symptoms are aggravated by lights, movement, noise, stress. The patient has experienced similar episodes in the past, a few times. The patient has not recently seen a physician. 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 pylori; Degenerative disc disease; Hypothyroidism; tw2 - Immunization history:: Adult Immunizations. - Coronavirus screen:: The patient has NOT traveled to [place] in the past 14 days. - Social history:: Smoking status: . - Ebola Screening: : Patient denies travel to an Ebola-affected area in the 21 days before illness onset. ROS: 15:59 Eyes: Negative for injury, pain, redness, and discharge, ENT: Negative for injury, jr8 pain, and discharge, Neck: Negative for injury, pain, and swelling, Cardiovascular: Negative for chest pain, palpitations, and edema, Back: Negative for injury and pain, MS/Extremity: Negative for injury and deformity, Skin: Negative for injury, rash, and discoloration. 15:59 Respiratory: Positive for shortness of breath, Negative for cough, dyspnea on exertion, sputum production, wheezing. 15:59 Abdomen/GI: Positive for nausea and vomiting, Negative for abdominal pain, diarrhea, constipation, abdominal cramps, abdominal distension. 15:59 Neuro: Positive for headache. Exam: 15:59 Eyes: Pupils equal round and reactive to light, extra-ocular motions intact. Lids and jr8 lashes normal. Conjunctiva and sclera are non-icteric and not injected. Cornea within normal limits. Periorbital areas with no swelling, redness, or edema. ENT: Nares patent. No nasal discharge, no septal abnormalities noted. Tympanic membranes are normal and external auditory canals are clear. Oropharynx with no redness, swelling, or masses, exudates, or evidence of obstruction, uvula midline. Mucous membranes moist. Neck: Trachea midline, no thyromegaly or masses palpated, and no cervical lymphadenopathy. Supple, full range of motion without nuchal rigidity, or vertebral point tenderness. No Meningismus. Cardiovascular: Regular rate and rhythm with a normal S1 and S2. No gallops, murmurs, or rubs. Normal PMI, no JVD. No pulse deficits. Respiratory: Lungs have equal breath sounds bilaterally, clear to auscultation and percussion. No rales, rhonchi or wheezes noted. No increased work of breathing, no retractions or nasal flaring. Abdomen/GI: Soft, non-tender, with normal bowel sounds. No distension or tympany. No guarding or rebound. No evidence of tenderness throughout. Back: No spinal tenderness. No costovertebral tenderness. Full range of motion. Skin: Warm, dry with normal turgor. Normal color with no rashes, no lesions, and no evidence of cellulitis. MS/ Extremity: Pulses equal, no cyanosis. Neurovascular intact. Full, normal range of motion. Neuro: Awake and alert, GCS 15, oriented to person, place, time, and situation. Cranial nerves II-XII grossly intact. Motor strength 5/5 in all extremities. Sensory grossly intact. Cerebellar exam normal. Normal gait. Vital Signs: 14:42 BP 117 / 78; Pulse 88; Resp 17; Temp 97.6(TE); Pulse Ox 100% on R/A; Weight 70.31 kg tw2 (R); Height 5 ft. 3 in. (160.02 cm); Pain 6/10; 16:01 BP 113 / 76; Pulse 76; Resp 17 S; Pulse Ox 100% on R/A; ca1 14:42 Body Mass Index 27.46 (70.31 kg, 160.02 cm) tw2 MDM: 15:03 Patient medically screened. jr8 16:28 Data reviewed: vital signs, nurses notes, lab test result(s), and as a result, I will jr8 discharge patient. Data interpreted: Pulse oximetry: on room air is 100 %. Interpretation: normal. Counseling: I had a detailed discussion with the patient and/or guardian regarding: the historical points, exam findings, and any diagnostic results supporting the discharge/admit diagnosis, lab results, the need for outpatient follow up, a family practitioner, to return to the emergency department if symptoms worsen or persist or if there are any questions or concerns that arise at home. Response to treatment: the patient's symptoms have markedly improved after treatment. 04/06 15:04 Order name: CBC with Diff 8 04/06 15:04 Order name: Basic Metabolic Panel; Complete Time: 15:45 8 04/06 15:04 Order name: IV; Complete Time: 15:35 Administered Medications: 15:20 Drug: NS 0.9% 1000 ml Route: IV; Rate: 1000 ml; Site: left antecubital; ca1 16:28 Follow up: Response: No adverse reaction; IV Status: Completed infusion ca1 15:22 Drug: Benadryl 25 mg Route: IVP; Site: left antecubital; ca1 16:29 Follow up: Response: No adverse reaction; Nausea is decreased ca1 15:25 Drug: Reglan 10 mg Route: IVP; Site: left antecubital; ca1 16:29 Follow up: Response: No adverse reaction; Pain is decreased ca1 Disposition: 18:58 Co-signature as Attending Physician, Adair Regalado MD I agree with the assessment and kdr plan of care. Disposition: 04/06/19 16:28 Discharged to Home. Impression: Migraine without aura, intractable. - Condition is Stable. - Discharge Instructions: Migraine Headache. - Medication Reconciliation Form, Thank You Letter, Antibiotic Education, Prescription Opioid Use form. - Follow up: Fady Gaines MD; When: 2 - 3 days; Reason: Recheck today's complaints, Continuance of care, Re-evaluation by your physician. - Problem is new. - Symptoms have improved. Signatures: Dispatcher [employer] EDMS Adair Regalado MD MD kdr Roszak, Josh, PA PA jr8 Greer Cerrato RN RN tw2 Marie Gavin RN RN ca1 Corrections: (The following items were deleted from the chart) 16:42 16:28 04/06/2019 16:28 Discharged to Home. Impression: Migraine without aura, ca1 intractable. Condition is Stable. Forms are Medication Reconciliation Form, Thank You Letter, Antibiotic Education, Prescription Opioid Use. Follow up: Fady Gaines; When: 2 - 3 days; Reason: Recheck today's complaints, Continuance of care, Re-evaluation by your physician. Problem is new. Symptoms have improved. jr8
[2019-04-06 17:13] VITALS: TEMP 97.6; O2SAT 100
[2019-04-06 17:14] VITALS: BP 113/76
== END 2019-04-06 16:42 | disposition home or self-care (01) ==
LOC: ER 14:30
DX: G43.009 Migraine without aura, not intractable, without status migrainosus (principal); E03.9 Hypothyroidism, unspecified; Z91.011 Allergy to milk products
CPT/HCPCS: 96361; 85025; 80048; 36415; 96375; 96374; 99284; J2765; J1200; J7030